=== PATIENT | male | born 1965 | race Caucasian/White ===

== ENCOUNTER → 2017-06-07 | Outpatient (CLI) | payer BC ==
[~2017-06-07] MED LIST: ALBU1AER9 INH; ASPI81TA28 PO; EPP3/2 IM; FLUT0.0529 NAE; MTR/600 PO; NYQUIL PO; PSEU60TA80 PO; ZCR40 PO
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
== END | disposition home or self-care (01) ==
LOC: C.RAD 13:39
PROVIDERS: ATTEND Nurse Practitioner Family
DX: S67.10XA Crushing injury of unspecified finger(s), initial encounter (principal); T14.8XXA Other injury of unspecified body region, initial encounter; X58.XXXA Exposure to other specified factors, initial encounter; M79.644 Pain in right finger(s); Z87.828 Personal history of other (healed) physical injury and trauma; M79.9 Soft tissue disorder, unspecified